=== PATIENT | male | born 1995 | race Caucasian/White ===

== ENCOUNTER 2020-01-13 14:40 | Emergency (ER) | payer SELFPAY ==
[~2020-01-13] VITALS: Ht 182 cm; Wt 88.0 kg
[2020-01-13] MEDS ORDERED: NS IV 1000 ML 1,000 ML IV SCH (15:15)
[2020-01-13] MEDS ORDERED: PROMETHAZINE INJ 25 MG/ML (PHENERGAN) AMP IVP ONE (15:15)
[2020-01-13 15:19] LABS: BASOPHILS % (AUTO) 0 % (0-10); EOSINOPHILS # (AUTO) 0.1 10^3/uL (0.0-0.3); EOSINOPHILS % (AUTO) 1 % (0-10); HEMATOCRIT 49 % (40-54); HEMOGLOBIN 16.9 G/DL (13.3-17.7); LYMPHOCYTES # (AUTO) 1.1 X 10^3 (1.0-4.0); LYMPHOCYTES % (AUTO) 12 % (12-44); MEAN CORPUSCULAR HEMOGLOBIN 32 PG (25-34); MEAN CORPUSCULAR HGB CONC 34 G/DL (32-36); MEAN CORPUSCULAR VOLUME 92 FL (80-99); MEAN PLATELET VOLUME 9.4 FL (7.4-10.4); MONOCYTES # (AUTO) 0.9 X 10^3 (0.0-1.0); MONOCYTES % (AUTO) 11 % (0-12); NEUTROPHILS # (AUTO) 6.8 X 10^3 (1.8-7.8); NEUTROPHILS % (AUTO) 76 % (42-75); PLATELET COUNT 275 10^3/uL (130-400); RED CELL DISTRIBUTION WIDTH 13.1 % (10.0-14.5)
--- NOTE | 2020-01-13 15:19 | ED GI ---
General Chief Complaint: Abdominal/GI Problems Stated Complaint: N/V/D Nursing Triage Note: N/V/D STARTING LAST NIGHT Sepsis Screen: No Definite Risk Source of Information: Patient Exam Limitations: No Limitations History of Present Illness Date Seen by Provider: Jan 13, 2020 Time Seen by Provider: 15:18 Initial Comments To ER with nausea vomiting and diarrhea that began last night after he got home from work. Female at the bedside reports that he vomits usually in the morning at least once a week. He saw primary care for this and a prescription for acid reflux medication. Timing/Duration: 1-2 Days Severity/Quality: Moderate Activities at Onset: None Associated Symptoms: Nausea/Vomiting Allergies and Home Medications Allergies Coded Allergies: No Known Drug Allergies (Unverified , 01/13/20) Home Medications No Active Prescriptions or Reported Meds Patient Home Medication List Home Medication List Reviewed: Yes Review of Systems Review of Systems Constitutional: see HPI EENTM: No Symptoms Reported Respiratory: No Symptoms Reported Gastrointestinal: See HPI, Abdominal Pain Genitourinary: No Symptoms Reported Musculoskeletal: no symptoms reported Skin: no symptoms reported Psychiatric/Neurological: No Symptoms Reported Endocrine: No Symptoms Reported Past Rnromss-Rhqtkf-Femvnv Hx Patient Social History Alcohol Use: Rarely Uses Recreational Drug Use: No Smoking Status: Current Everyday Smoker Recent Foreign Travel: No Contact w/Someone Who Travel: No Recent Infectious Disease Expo: No Recent Hopitalizations: No Seasonal Allergies Seasonal Allergies: No Past Medical History Surgeries: Yes Orthopedic Respiratory: No Cardiac: No Neurological: No Genitourinary: No Gastrointestinal: No Musculoskeletal: No Endocrine: No HEENT: No Cancer: No Psychosocial: No Integumentary: No Physical Exam Vital Signs Vital Signs - First Documented 01/13/20 14:45 Temp 37.1 Pulse 99 Resp 16 B/P (MAP) 129/87 (101) Pulse Ox 97 O2 Delivery Room Air Capillary Refill : Less Than 3 Seconds Height/Weight/BMI Height: '" Weight: lbs. oz. kg; 26.00 BMI Method: General Appearance: WD/WN, no apparent distress HEENT: PERRL/EOMI, normal ENT inspection Respiratory: no respiratory distress, no accessory muscle use Cardiovascular: regular rate, rhythm, no murmur Gastrointestinal: normal bowel sounds, non tender, soft Extremities: normal range of motion, non-tender Neurologic/Psychiatric: alert, normal mood/affect, oriented x 3 Skin: normal color, warm/dry Progress/Results/Core Measures Results/Orders Lab Results Laboratory Tests Test 01/13/20 15:12 Range/Units White Blood Count 9.0 4.3-11.0 10^3/uL Red Blood Count 5.34 4.35-5.85 10^6/uL Hemoglobin 16.9 13.3-17.7 G/DL Hematocrit 49 40-54 % Mean Corpuscular Volume 92 80-99 FL Mean Corpuscular Hemoglobin 32 25-34 PG Mean Corpuscular Hemoglobin Concent 34 32-36 G/DL Red Cell Distribution Width 13.1 10.0-14.5 % Platelet Count 275 130-400 10^3/uL Mean Platelet Volume 9.4 7.4-10.4 FL Neutrophils (%) (Auto) 76 H 42-75 % Lymphocytes (%) (Auto) 12 12-44 % Monocytes (%) (Auto) 11 0-12 % Eosinophils (%) (Auto) 1 0-10 % Basophils (%) (Auto) 0 0-10 % Neutrophils # (Auto) 6.8 1.8-7.8 X 10^3 Lymphocytes # (Auto) 1.1 1.0-4.0 X 10^3 Monocytes # (Auto) 0.9 0.0-1.0 X 10^3 Eosinophils # (Auto) 0.1 0.0-0.3 10^3/uL Basophils # (Auto) 0.0 0.0-0.1 10^3/uL Sodium Level 138 135-145 MMOL/L Potassium Level 3.8 3.6-5.0 MMOL/L Chloride Level 102 98-107 MMOL/L Carbon Dioxide Level 25 21-32 MMOL/L Anion Gap 11 5-14 MMOL/L Blood Urea Nitrogen 13 7-18 MG/DL Creatinine 0.94 0.60-1.30 MG/DL Estimat Glomerular Filtration Rate > 60 BUN/Creatinine Ratio 14 Glucose Level 94 70-105 MG/DL Calcium Level 9.6 8.5-10.1 MG/DL Corrected Calcium 8.5-10.1 MG/DL Total Bilirubin 0.9 0.1-1.0 MG/DL Aspartate Amino Transf (AST/SGOT) 31 5-34 U/L Alanine Aminotransferase (ALT/SGPT) 33 0-55 U/L Alkaline Phosphatase 82 40-136 U/L Total Protein 8.0 6.4-8.2 GM/DL Albumin 5.0 H 3.2-4.5 GM/DL Lipase 15 8-78 U/L My Orders Orders - NIKOLAI HERNÁNDEZ APRN Cbc With Automated Diff (01/13/20 15:13) Lipase (01/13/20 15:13) Comprehensive Metabolic Panel (01/13/20 15:13) Ed Iv/Invasive Line Start (01/13/20 15:13) Ns Iv 1000 Ml (Sodium Chloride 0.9%) (01/13/20 15:15) Promethazine Injection (Phenergan Injec (01/13/20 15:15) Medications Given in ED Current Medications Medications Dose Ordered Sig/Lisa Route Start Time Stop Time Status Last Admin Dose Admin Promethazine HCl 12.5 mg ONCE ONCE IVP 01/13/20 15:15 01/13/20 15:16 DC 01/13/20 15:28 12.5 MG Vital Signs/I&O 01/13/20 14:45 Temp 37.1 Pulse 99 Resp 16 B/P (MAP) 129/87 (101) Pulse Ox 97 O2 Delivery Room Air Blood Pressure Mean: 101 Departure Impression Primary Impression: Nausea and vomiting Disposition: 01 HOME, SELF-CARE Condition: Stable Departure-Patient Inst. Decision time for Depature: 16:17 Referrals: NO,LOCAL PHYSICIAN (PCP) Primary Care Physician Patient Instructions: Nausea and Vomiting, Adult Add. Discharge Instructions: 1. Return to ER for any concerns 2. Follow-up with your doctor next week 3. You can use iieh-oww-jyydtct Imodium for diarrhea control. All discharge instructions reviewed with patient and/or family. Voiced understanding. Scripts Ondansetron (Ondansetron Odt) 8 Mg Tab.rapdis 8 MG PO Q6H PRN for NAUSEA/VOMITING, #10 TAB Prov: NIKOLAI HERNÁNDEZ APRN 01/13/20 Work/School Note: Work Release Form Date Seen in the Emergency Department: Jan 13, 2020 Return to Work: Jan 15, 2020 NIKOLAI HERNÁNDEZ APRN Jan 13, 2020 15:19
[2020-01-13 15:36] LABS: ALANINE AMINOTRANSFERASE 33 U/L (0-55); ALKALINE PHOSPHATASE 82 U/L (40-136); BILIRUBIN,TOTAL 0.9 MG/DL (0.1-1.0); BUN/CREATININE RATIO 14; CALCIUM 9.6 MG/DL (8.5-10.1); CARBON DIOXIDE 25 MMOL/L (21-32); CHLORIDE 102 MMOL/L (98-107); CREATININE SERUM 0.94 MG/DL (0.60-1.30); GFR ESTIMATED > 60; GLUCOSE 94 MG/DL (70-105); LIPASE 15 U/L (8-78); POTASSIUM 3.8 MMOL/L (3.6-5.0); SODIUM 138 MMOL/L (135-145)
--- NOTE | 2020-01-13 16:08 | NUR ---
NO NEW C/O FLUIDS INFUSING.
[2020-01-13] MEDS ORDERED: ONDA8TAB13 PO (16:18)
[2020-01-13 16:36] VITALS: BP 130/70
== END 2020-01-13 16:36 | disposition home or self-care (01) ==
LOC: EDUNIT# 14:40 → ER 14:41
DX: R11.2 Nausea with vomiting, unspecified (principal); F17.200 Nicotine dependence, unspecified, uncomplicated
CPT/HCPCS: 36415; 80053; 83690; 85025

== ENCOUNTER 2020-02-08 13:24 | Emergency (ER) | payer SELFPAY ==
[~2020-02-08] VITALS: Ht 182.8 cm; Wt 79.4 kg
[~2020-02-08 13:24] MED LIST: ONDA8TAB13 PO
[2020-02-08] MEDS ORDERED: ONDA4TAB11 PO (13:59)
--- NOTE | 2020-02-08 13:59 | ED GI ---
General Chief Complaint: Abdominal/GI Problems Stated Complaint: ABD PAIN Nursing Triage Note: PT AMB TO TRIAGE WITH COMPLAINT OF ABD PAIN. WOKE UP THIS MORNING WITH STOMACH UPSET. BUT HAS BEEN HAVING GI UPSET FOR THE LAST [address] APPOINTMENT ON FRIDAY. STATES HE JUST WANTS TO BE CHECKED OUT INCASE HE IS COMING DOWN WITH SOMETHING. Sepsis Screen: No Definite Risk Source of Information: Patient Exam Limitations: No Limitations History of Present Illness Date Seen by Provider: Feb 08, 2020 Time Seen by Provider: 13:35 Initial Comments Patient presents ER by private conveyance with chief complaint for less than 24 hours he woke up with some nausea, vomiting and abdominal discomfort. His pain is in his epigastric region. He has a history for the past couple months of some GERD symptoms and has an appointment coming up to get checked out at [facility] for this. He does not routinely follow with a doctor nor does he take any medications routinely. He has not had any diarrhea but he did have a bowel movement earlier today which was normal formed. No history of surgeries or trauma. No fevers chills cough shortness of breath wheezing. He quit smoking a few weeks ago about a pack per day. He says he wants to get checked out. Make sure he doesn't have flu. Allergies and Home Medications Allergies Coded Allergies: Sulfa (Sulfonamide Antibiotics) (Verified Allergy, Unknown, 02/08/20) Home Medications Ondansetron 8 Mg Tab.rapdis, 8 MG PO Q6H PRN for NAUSEA/VOMITING Prescribed by: NIKOLAI HERNÁNDEZ on 01/13/20 1618 Patient Home Medication List Home Medication List Reviewed: Yes Review of Systems Review of Systems Constitutional: No chills, No diaphoresis, No fever; malaise EENTM: No Blurred Vision, No Double Vision Respiratory: Denies Cough, Denies Shortness of Air Cardiovascular: Denies Chest Pain, Denies Edema Gastrointestinal: See HPI; Denies Abdomen Distended; Abdominal Pain; Denies Constipated, Denies Diarrhea; Nausea, Poor Fluid Intake, Vomiting Genitourinary: Denies Burning, Denies Discharge Musculoskeletal: No back pain, No joint pain All Other Systems Reviewed Negative Unless Noted: Yes Past Ogvvgyt-Qpeega-Bbrjlp Hx Patient Social History Alcohol Use: Occasionally Uses Recreational Drug Use: Yes Drug of Choice: MARIJUANA Smoking Status: Former Smoker Type Used: Cigarettes Recent Foreign Travel: No Contact w/Someone Who Travel: No Recent Infectious Disease Expo: No Recent Hopitalizations: No Immunizations Up To Date Tetanus Booster (TDap): Unknown PED Vaccines UTD: Yes Seasonal Allergies Seasonal Allergies: No Past Medical History Surgeries: Yes Orthopedic Respiratory: No Cardiac: No Neurological: No Genitourinary: No Gastrointestinal: No Musculoskeletal: No Endocrine: No HEENT: No Cancer: No Psychosocial: No Integumentary: No Physical Exam Vital Signs Vital Signs - First Documented 02/08/20 13:31 Temp 36.8 Pulse 66 Resp 20 B/P (MAP) 123/80 (94) Pulse Ox 95 O2 Delivery Room Air Capillary Refill : Less Than 3 Seconds Height/Weight/BMI Height: '" Weight: lbs. oz. kg; 23.00 BMI Method: General Appearance: WD/WN, no apparent distress HEENT: PERRL/EOMI, normal ENT inspection, TMs normal, pharyngeal erythema; No tonsillar exudate Neck: non-tender, full range of motion, supple, normal inspection Respiratory: lungs clear, normal breath sounds, no respiratory distress, no accessory muscle use Cardiovascular: normal peripheral pulses, regular rate, rhythm Peripheral Pulses: 2+ Radial Pulses (R), 2+ Radial Pulses (L) Gastrointestinal: normal bowel sounds, non tender, soft Extremities: normal range of motion, non-tender, normal capillary refill Neurologic/Psychiatric: alert, normal mood/affect, oriented x 3 Skin: normal color, warm/dry Progress/Results/Core Measures Results/Orders My Orders Orders - BRANDON SALGUERO Ondansetron Oral Dissolve Tab (Zofran (02/08/20 14:00) Vital Signs/I&O 02/08/20 13:31 Temp 36.8 Pulse 66 Resp 20 B/P (MAP) 123/80 (94) Pulse Ox 95 O2 Delivery Room Air Blood Pressure Mean: 94 Progress Progress Note : Time: 13:56 Progress Note Aseptic vital signs with a benign abdominal exam. Most likely a viral gastroenteritis. No respiratory symptoms. No travel outside the [facility] States. Plan to give him some ondansetron and tell him to stay home for couple days since he works [employer]. Departure Impression Primary Impression: Viral gastroenteritis Disposition: 01 HOME, SELF-CARE Condition: Stable Departure-Patient Inst. Decision time for Depature: 13:57 Referrals: NO,LOCAL PHYSICIAN (PCP) Primary Care Physician Patient Instructions: Viral Gastroenteritis, Adult (DC) Add. Discharge Instructions: Drink plenty of fluids and stick to a liquid diet until your nausea symptoms are better. Zofran/ondansetron one or 2 tablet(s) under the tongue every 6 hours as needed for nausea or vomiting. Tylenol 1000 mg every 8 hours as needed for body aches. Ibuprofen 800 mg every 8 hours as needed for body aches. You may use aivn-zaa-intbzme antacid such as Pepcid or omeprazole for acid reflux. Tums, Rolaids, Maalox are useful for immediate relief. Keep your follow-up appointments with your primary office. Return to the ER if you have severe chest pain or inability to catch your breath even at rest especially accompanied by a fever over 100.3F. All discharge instructions reviewed with patient and/or family. Voiced understanding. Scripts Ondansetron (Ondansetron Odt) 4 Mg Tab.rapdis 4-8 MG PO Q6H PRN for NAUSEA/VOMITING, #12 TAB 0 Refills Prov: BRANDON SALGUERO 02/08/20 Work/School Note: Work Release Form Date Seen in the Emergency Department: Feb 08, 2020 Return to Work: Feb 11, 2020 Restrictions: No Restrictions BRANDON SALGUERO Feb 08, 2020 13:59
[2020-02-08] MEDS ORDERED: ONDANSETRON 4 MG (ZOFRAN) ORAL DISSOLVE TAB PO ONE (14:00)
[2020-02-08 14:22] VITALS: BP 123/80
--- OUTSIDE RECORDS SUMMARY | 2020-02-08 15:25 | XMS REPORT | Continuity of Care Document ---
Author Organization Unknown Address Unknown Phone Unavailable Allergies Active Description Code Type Severity Reaction Onset Reported/Identified Relationship to Patient Clinical Status Yes No Known Drug Allergies [id number] Drug Allergy Unknown N/A 01/13/2020 Medications There is no data. Problems Date Dx Coded Attending Type Code Diagnosis Diagnosed By 01/13/2020 NIKOLAI HERNÁNDEZ APRN Ot F17.200 NICOTINE DEPENDENCE, UNSPECIFIED, UNCOMP 01/13/2020 NIKOLAI HERNÁNDEZ APRN Ot R11 .2 NAUSEA WITH VOMITING, UNSPECIFIED 01/17/2020 NIKOLAI HERNÁNDEZ APRN Ot F17.200 NICOTINE DEPENDENCE, UNSPECIFIED, UNCOMP 01/17/2020 NIKOLAI HERNÁNDEZ APRN Ot R11 .2 NAUSEA WITH VOMITING, UNSPECIFIED Procedures There is no data. Results Test Result Range Complete blood count (CBC) with automate d white blood cell (WBC) differential - 01/13/20 15:12 Blood leukocytes automated count (number/volume) 9.0 10*3/uL 4.3-11.0 Blood erythrocytes automated count (number/volume) 5.34 10*6/uL 4.35-5.85 Venous blood hemoglobin measurement (mass/volume) 16.9 g/dL 13.3-17.7 Blood hematocrit (volume fraction) 49 % 40-54 Automated erythrocyte mean corpuscular volume 92 [ foz_us] 80-99 Automated erythrocyte mean corpuscular h emoglobin (mass per erythrocyte) 32 pg 25-34 Automated erythrocyte mean corpuscular h emoglobin concentration measurement (mass/volume) 34 g/dL 32-36 Automated erythrocyte distribution width ratio 13. 1 % 10.0- 14.5 Automated blood platelet count (count/volume) 275 10*3/uL 130-400 Automated blood platelet mean volume measurement 9.4 [foz_us] 7.4-10.4 Automated blood neutrophils/100 leukocytes 76 % 42-75 Automated blood lymphocytes/100 leukocytes 12 % 12-44 Blood monocytes/100 leukocytes 11 % 0-12 Automated blood eosinophils/100 leukocytes 1 % 0-10 Automated blood basophils/100 leukocytes 0 % 0-10 Blood neutrophils automated count (number/volume) 6.8 10*3 1.8-7.8 Blood lymphocytes automated count (number/volume) 1.1 10*3 1.0-4.0 Blood monocytes automated count (number/volume) 0. 9 10*3 0.0-1.0 Automated eosinophil count 0.1 10*3/uL 0 .0-0.3 Automated blood basophil count (count/volume) 0.0 10*3/uL 0.0-0.1 Comprehensive metabolic panel - 01/13/20 15:12 Serum or plasma sodium measurement (moles/volume) 138 mmol/L 135-145 Serum or plasma potassium measurement (moles/volume) 3.8 mmol/L 3.6-5.0 Serum or plasma chloride measurement (moles/volume) 102 mmol/L 98-107 Carbon dioxide 25 mmol/L 21-32 Serum or plasma anion gap determination (moles/volume) 11 mmol/L 5-14 Serum or plasma urea nitrogen measurement (mass/volume ) 13 mg/dL 7-18 Serum or plasma creatinine measurement (mass/volume) 0.94 mg/dL 0.60-1.30 Serum or plasma urea nitrogen/creatinine mass ratio 14 NRG Serum or plasma creatinine measurement w ith calculation of estimated glomerular filtration rate > NRG Serum or plasma glucose measurement (mass/volume) 94 mg/dL 70-105 Serum or plasma calcium measurement (mass/volume) 9.6 mg/dL 8.5-10.1 Serum or plasma total bilirubin measurement (mass/volu me) 0.9 mg/dL 0.1-1.0 Serum or plasma alkaline phosphatase king surement (enzymatic activity/volume) 82 U/L 40-136 Serum or plasma aspartate aminotransfera se measurement (enzymatic activity/volume) 31 U/L 5-34 Serum or plasma alanine aminotransferase measurement (enzymatic activity/volume) 33 U/L 0-55 Serum or plasma protein measurement (mass/volume) 8.0 g/dL 6.4-8.2 Serum or plasma albumin measurement (mass/volume) 5.0 g/dL 3.2-4.5 Lipase - 01/13/20 15:12 Lipase 15 U/L 8-78 Encounters ACCT No. Visit Date/Time Discharge Status Pt. Type Provider Facility Loc./Unit Complaint [id number] 02/08/2020 13:25:00 020 14:28:00 DIS Emergency BRANDON SALGUERO MD [facility] ER ABD PAIN [id number] 01/13/2020 14:41:00 16:36:00 DIS Emergency NIKOLAI HERNÁNDEZ APRN [facility] ER N/V/D
== END 2020-02-08 14:28 | disposition home or self-care (01) ==
LOC: EDUNIT# 13:24 → ER 13:25
DX: A08.4 Viral intestinal infection, unspecified (principal); Z88.2 Allergy status to sulfonamides; Z87.891 Personal history of nicotine dependence
CPT/HCPCS: 99283

== ENCOUNTER 2020-03-21 16:40 | Emergency (ER) | payer SELFPAY ==
[~2020-03-21] VITALS: Ht 180.3 cm; Wt 90.0 kg
[~2020-03-21 16:40] MED LIST changes: +ONDA4TAB11 PO
--- OUTSIDE RECORDS SUMMARY | 2020-03-21 16:45 | XMS REPORT | Continuity of Care Document ---
Author Organization Unknown Address Unknown Phone Unavailable Allergies Active Description Code Type Severity Reaction Onset Reported/Identified Relationship to Patient Clinical Status Yes No Known Drug Allergies [id number] Drug Allergy Unknown N/A 01/13/2020 Yes Sulfa (Sulfonamide Antibiotics) [id number] Drug Allergy Unknown N/A 020 Medications There is no data. Problems Date Dx Coded Attending Type Code Diagnosis Diagnosed By 01/13/2020 NIKOLAI HERNÁNDEZ APRN, Ot F17.200 NICOTINE DEPENDENCE, UNSPECIFIED, UNCOMP 01/13/2020 NIKOLAI HERNÁNDEZ APRN Ot R11 .2 NAUSEA WITH VOMITING, UNSPECIFIED 01/17/2020 NIKOLAI HERNÁNDEZ APRN Ot F17.200 NICOTINE DEPENDENCE, UNSPECIFIED, UNCOMP 01/17/2020 NIKOLAI HERNÁNDEZ APRN Ot R11 .2 NAUSEA WITH VOMITING, UNSPECIFIED 02/10/2020 NOEMY YUSUF, BRANDON Valladares Ot A08. 4 VIRAL INTESTINAL INFECTION, UNSPECIFIED 02/10/2020 NOEMY YUSUF, BRANDON Valladares Ot R10. 13 EPIGASTRIC PAIN 02/10/2020 NOEMY YUSUF, BRANDON Valladares Ot Z87.891 PERSONAL HISTORY OF NICOTINE DEPENDENCE 02/10/2020 NOEMY YUSUF, BRANDON Valladares Ot Z88. 2 ALLERGY STATUS TO SULFONAMIDES STATUS Procedures There is no data. Results Test [...] Status Pt. Type Provider Facility Loc./Unit Complaint [id number] 02/08/2020 13:25:00 020 14:28:00 DIS Outpatient BRANDON SALGUERO MD [facility] ER ABD PAIN [id number] 01/13/2020 14:41:00 020 16:36:00 DIS Emergency NIKOLAI HERNÁNDEZ APRN [facility] ER N/V/D
--- NOTE | 2020-03-21 17:35 | ED Lower Extremity ---
General Chief Complaint: Lower Extremity Stated Complaint: R FOOT PAIN History of Present Illness Date Seen by Provider: Mar 21, 2020 Time Seen by Provider: 15:15 Initial Comments 24-year-old male presents for right foot and ankle pain. He reports proximally one hour ago becoming upset and kicking a basketball with his shoe on. He had immediate onset of pain in the right midfoot. No previous history of injuries to the right lower extremity. He took ibuprofen prior to arrival. Pain/Injury Location: right foot, right ankle Method of Injury: direct blow Allergies and Home Medications Allergies Coded Allergies: Sulfa (Sulfonamide Antibiotics) (Verified Allergy, Unknown, 02/08/20) Home Medications Ondansetron 8 Mg Tab.rapdis, 8 MG PO Q6H PRN for NAUSEA/VOMITING Prescribed by: NIKOLAI HERNNÁDEZ on 01/13/20 1618 Ondansetron 4 Mg Tab.rapdis, 4-8 MG PO Q6H PRN for NAUSEA/VOMITING Prescribed by: BRANDON SALGUERO on 02/08/20 1359 Patient Home Medication List Home Medication List Reviewed: Yes Review of Systems Constitutional: no symptoms reported, see HPI Musculoskeletal: see HPI, joint pain (right ankle and midfoot) All Other Systems Reviewed Negative Unless Noted: Yes Past Euibjpa-Mfuqag-Ktsfau Hx Past Med/Social Hx: Reviewed Nursing Past Med/Soc Hx Patient Social History Drug of Choice: MARIJUANA Type Used: Cigarettes Recent Foreign Travel: No Contact w/Someone Who Travel: No Recent Hopitalizations: No Immunizations Up To Date Tetanus Booster (TDap): Unknown PED Vaccines UTD: Yes Seasonal Allergies Seasonal Allergies: No Past Medical History Surgeries: Yes Orthopedic Respiratory: No Cardiac: No Neurological: No Genitourinary: No Gastrointestinal: No Musculoskeletal: No Endocrine: No HEENT: No Cancer: No Psychosocial: No Integumentary: No Physical Exam Vital Signs Vital Signs - First Documented 03/21/20 17:18 Temp 37.0 Pulse 76 Resp 18 B/P (MAP) 133/80 (97) Pulse Ox 97 O2 Delivery Room Air Capillary Refill : Height, Weight, BMI Height: '" Weight: lbs. oz. kg; 23.00 BMI Method: General Appearance: WD/WN, no apparent distress Cardiovascular: normal peripheral pulses, regular rate, rhythm Respiratory: chest non-tender, lungs clear, normal breath sounds Gastrointestinal: normal bowel sounds, non tender, soft Ankles: right ankle normal inspection, right ankle limited range of motion (it indurated pain), right ankle soft tissue tenderness (lateral aspect) Feet: right foot normal range of motion, right foot bone tenderness (mid foot), right foot soft tissue tenderness Neurologic/Tendon: normal sensation, normal motor functions Neurologic/Psychiatric: no motor/sensory deficits, alert, normal mood/affect, oriented x 3 Skin: normal color, warm/dry; No ecchymosis Progress/Results/Core Measures Results/Orders My Orders Orders - BETHANY MCGEE Foot, Right, 3 View (03/21/20 17:31) Ankle, Right, 3 Views (03/21/20 17:31) Vital Signs/I&O 03/21/20 17:18 Temp 37.0 Pulse 76 Resp 18 B/P (MAP) 133/80 (97) Pulse Ox 97 O2 Delivery Room Air Diagnostic Imaging Diagonstic Imaging: Xray Plain Films/CT/US/NM/MRI: ankle Comments NAME: CHANI MATTA MED REC#: [id number] PT STATUS: REG ER : 1995 PHYSICIAN: BETHANY MCGEE ADMIT DATE: 03/21/20/ER Draft Date of Exam:03/21/20 ANKLE, RIGHT, 3 VIEWS INDICATION: Pain status post injury COMPARISON: None. FINDINGS: 3 views of the right ankle were obtained. There is no acute fracture or dislocation. No focal osseous lesions are seen. The surrounding soft tissue structures are unremarkable. There are no radiopaque foreign bodies. IMPRESSION: 1. No acute fracture or dislocation in the right ankle. Dictated on workstation # [id number] Dict: 03/21/20 1751 Trans: 03/21/20 175 [facility] [id number] Interpreted by: JUANITA COSTA MD Electronically signed by: Reviewed: Reviewed by Me Plain Films/CT/US/NM/MRI: other (foot) Comments NAME: CHANI MATTA MED REC#: [id number] PT STATUS: REG ER : 1995 PHYSICIAN: BETHANY MCGEE ADMIT DATE: 04/28/20/ER Draft Date of Exam:03/21/20 FOOT, RIGHT, 3 VIEW INDICATION: Pain status post injury COMPARISON: None. FINDINGS: 3 views of the right foot demonstrate no acute fracture or dislocation. There are no focal osseous lesions. There is no soft tissue swelling. Joint spaces are well maintained. No radiopaque foreign bodies are seen. IMPRESSION: No acute fractures or dislocations of the right foot. Dictated on workstation # [id number] Dict: 03/21/20 1750 Trans: 03/21/201751 [facility] [id number] Interpreted by: JUANITA COSTA MD Electronically signed by: Reviewed: Reviewed by Me Departure Impression Primary Impression: Contusion of right foot Qualified Codes: S90.31XA - Contusion of right foot, initial encounter Additional Impression: Right ankle sprain Qualified Codes: S93.491A - Sprain of other ligament of right ankle, initial encounter Disposition: 01 HOME, SELF-CARE Condition: Improved Departure-Patient Inst. Decision time for Depature: 18:00 Referrals: NO,LOCAL PHYSICIAN (PCP/Family) Primary Care Physician Patient Instructions: Ankle Sprain (DC), Contusion (DC) Add. Discharge Instructions: ice and elevate right foot/ankle. Progress activity as tolerated. Use an Alf wrap to foot/ankle for the next 2-3 days. Crutches, weight bearing as tolerated right ankle/foot. Up with your primary care provider if symptoms are not improving or worsen. Return to the emergency department for new, urgent health care needs All discharge instructions reviewed with patient and/or family. Voiced understanding. BETHANY MCGEE Mar 21, 2020 17:35
--- NOTE | 2020-03-21 17:52 | Diagnostic Imaging Report ---
INDICATION: Pain status post injury COMPARISON: None. FINDINGS: 3 views of the right foot demonstrate no acute fracture or dislocation. There are no focal osseous lesions. There is no soft tissue swelling. Joint spaces are well maintained. No radiopaque foreign bodies are seen. IMPRESSION: No acute fractures or dislocations of the right foot. Dictated by: Dictated on workstation # [id number]
--- NOTE | 2020-03-21 17:53 | Diagnostic Imaging Report ---
INDICATION: Pain status post injury COMPARISON: None. FINDINGS: 3 views of the right ankle were obtained. There is no acute fracture or dislocation. No focal osseous lesions are seen. The surrounding soft tissue structures are unremarkable. There are no radiopaque foreign bodies. IMPRESSION: 1. No acute fracture or dislocation in the right ankle. Dictated by: Dictated on workstation # [id number]
[2020-03-21 18:17] VITALS: BP 133/80
== END 2020-03-21 18:17 | disposition home or self-care (01) ==
LOC: EDUNIT# 16:40 → ER 16:42
DX: S90.31XA Contusion of right foot, initial encounter (principal); S93.491A Sprain of other ligament of right ankle, initial encounter; Z88.2 Allergy status to sulfonamides; W21.03XA Struck by baseball, initial encounter
CPT/HCPCS: 73610; 73630